=== PATIENT | female | born 1960 | race Caucasian/White ===

== ENCOUNTER → 2019-06-03 | Outpatient (CLI) | payer OTHER | END | disposition home or self-care (01) | LOC: LAB SHORT 10:30 → LAB 10:30 | PROVIDERS: Nurse Practitioner | DX: Z01.419 Encounter for gynecological examination (general) (routine) without abnormal findings (principal) | CPT/HCPCS: G0145 ==

== ENCOUNTER 2021-01-01 11:02 | Observation (INO) | payer OTHER ==
[~2021-01-01] VITALS: Ht 162.6 cm; Wt 90.7 kg
[~2021-01-01 11:02] MED LIST: FLONASE SENSIM5.9 M1
[2021-01-01 11:47] LABS: BASOPHILS ABSOLUTE AUTO 0.04 K/mm3 (0.00-0.23); BASOPHILS PERCENT AUTO 1 % (0-2); EOSINOPHILS ABSOLUTE AUTO 0.26 K/mm3 (0.00-0.68); EOSINOPHILS PERCENT AUTO 4 % (0-6); Hematocrit 42.2 % (33.0-51.0); Hemoglobin 14.4 g/dL (11.5-16.0); IMMATURE GRAN ABSOLUTE AUTO 0.03 K/mm3 (0.00-0.10); IMMATURE GRAN PERCENT AUTO 0 % (0-1); LYMPHOCYTES ABSOLUTE AUTO 1.43 K/mm3 (0.84-5.20); LYMPHOCYTES PERCENT AUTO 20 % (21-46); MONOCYTES ABSOLUTE AUTO 0.54 K/mm3 (0.16-1.47); MONOCYTES PERCENT AUTO 7 % (4-13); Mean Corpuscular HGB Conc 34.1 g/dL (31.5-36.5); Mean Corpuscular Volume 97 fL (80-100); Mean Platelet Volume 10.9 fL (9.1-12.4); NEUTROPHILS ABSOLUTE AUTO 5.04 K/mm3 (1.96-9.15); NEUTROPHILS PERCENT AUTO 69 % (41-73); Platelet Count 186 K/mm3 (150-400); RDW Standard Deviation 46.5 fL (35.1-46.3); Red Blood Cell Count 4.36 M/mm3 (3.80-5.20); White Blood Cell Count 7.34 K/mm3 (4.00-11.30)
[2021-01-01 12:00] LABS: Alanine Aminotransfer (ALT/SGP 41 U/L (12-78); Albumin, Blood 3.9 g/dL (3.4-5.0); Alk Phos 37 U/L (50-136); Anion Gap 6 mmol/L (6-16); Aspartate Aminotrans (AST/SGOT 36 U/L (12-37); Bilirubin, Total 0.8 mg/dL (0.1-1.0); Blood Urea Nitrogen 15 mg/dL (8-24); Bun/Creatinine Ratio 26.2 (12.0-20.0); CO2, Blood 25 mmol/L (21-32); Calcium, Blood 9.3 mg/dL (8.5-10.1); Chloride, Blood 110 mmol/L (98-108); Creatinine, Blood 0.57 mg/dL (0.40-1.00); Globulin, Blood 3.8 g/dL (2.2-4.0); Glomerular Filtration Rate >60 (60-); Glucose, Blood 158 mg/dL (70-99); Sodium, Blood 141 mmol/L (136-145); Total Protein, Blood 7.7 g/dL (6.4-8.2); Troponin I <0.015 ng/mL (0.000-0.040)
[2021-01-01] MEDS ORDERED: Mobic7.5 MG PO (14:17)
[2021-01-01] MEDS ORDERED: ATOR10 PO (14:18)
[2021-01-01] MEDS ORDERED: OMEP20ER PO (14:19)
[2021-01-01] MEDS ORDERED: BUDESONIDE-FO10.2 G2 INH (14:19)
[2021-01-01] MEDS ORDERED: IBU800 M1 PO (14:19)
[2021-01-01] MEDS ORDERED: HYDCHL25 PO (14:20)
[2021-01-01] MEDS ORDERED: ALBU90OI INH (14:29)
[2021-01-01] MEDS ORDERED: PROBIOTIC1 EA13 PO (18:04)
--- NOTE | 2021-01-01 19:15 | NUR ---
ASSUMED CARE REPORT RECEIVED FROM LUL[facility] PI[facility]A. PT LYING IN BED, IN NO ACUTE DISTRESS. NO ACUTE NEEDS ASSESSED AT THIS TIME. PT REQUESTING ICE CHIPS. WILL COMMUNICATE REQUEST TO PHYSICIAN. CALL LIGHT, POSSESSIONS IN REACH, BED IN LOW POSITION. CONTINUE TO MONITOR.
--- NOTE | 2021-01-01 19:30 | NUR ---
SHIFT SUMMARY: PATIENT ADMIT (OBS) FROM ED THIS SHIFT. PT A&O; CALM & COOPERATIVE WITH CARE; INDEPENDENT IN ROOM. NO C/O PAIN/NAUSEA SINCE ARRIVAL ON MEDICAL. 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 PATIENT IS NPO; REHYDRATION CONTINUING. REPORT GIVEN TO ONCOMING RN.
[2021-01-02 04:41] LABS: BASOPHILS ABSOLUTE AUTO 0.03 K/mm3 (0.00-0.23); BASOPHILS PERCENT AUTO 1 % (0-2); EOSINOPHILS ABSOLUTE AUTO 0.24 K/mm3 (0.00-0.68); EOSINOPHILS PERCENT AUTO 4 % (0-6); Hematocrit 38.5 % (33.0-51.0); Hemoglobin 12.9 g/dL (11.5-16.0); IMMATURE GRAN ABSOLUTE AUTO 0.02 K/mm3 (0.00-0.10); IMMATURE GRAN PERCENT AUTO 0 % (0-1); LYMPHOCYTES ABSOLUTE AUTO 1.81 K/mm3 (0.84-5.20); LYMPHOCYTES PERCENT AUTO 32 % (21-46); MONOCYTES ABSOLUTE AUTO 0.58 K/mm3 (0.16-1.47); MONOCYTES PERCENT AUTO 10 % (4-13); Mean Corpuscular HGB 32.7 pg (26.0-34.0); Mean Corpuscular HGB Conc 33.5 g/dL (31.5-36.5); Mean Corpuscular Volume 98 fL (80-100); NEUTROPHILS ABSOLUTE AUTO 2.91 K/mm3 (1.96-9.15); NEUTROPHILS PERCENT AUTO 52 % (41-73); Platelet Count 138 K/mm3 (150-400); RDW Standard Deviation 46.7 fL (35.1-46.3); Red Blood Cell Count 3.94 M/mm3 (3.80-5.20); White Blood Cell Count 5.59 K/mm3 (4.00-11.30)
--- NOTE | 2021-01-02 04:59 | NUR ---
SALAD MAKER SUMMARY PT RESTING COMFORTABLY, NO ACUTE DISTRESS NOTED. VS REVIEWED, WNL. PT REPORTS DIZZINESS IS IMPROVED, DENIES FEELINGS OF SYNCOPE, N/V, CP OR PRESSURE. HR STABLE. PT SLEPT ON AND OFF T/O NIGHT. DENIES PAIN. NO ACUTE NEEDS ASSESSED AT THIS TIME. CALL LIGHT AND POSSESSIONS IN REACH, PT INDEPENDENT IN ROOM. IVF ONGOING. CONTINUE TO MONITOR, REPORT OFF TO DAY RN.
[2021-01-02 05:00] LABS: Alanine Aminotransfer (ALT/SGP 32 U/L (12-78); Albumin, Blood 3.2 g/dL (3.4-5.0); Alk Phos 32 U/L (50-136); Anion Gap 5 mmol/L (6-16); Aspartate Aminotrans (AST/SGOT 14 U/L (12-37); Bilirubin, Total 0.7 mg/dL (0.1-1.0); Blood Urea Nitrogen 11 mg/dL (8-24); Bun/Creatinine Ratio 15.2 (12.0-20.0); CO2, Blood 29 mmol/L (21-32); Calcium, Blood 8.5 mg/dL (8.5-10.1); Chloride, Blood 110 mmol/L (98-108); Creatinine, Blood 0.72 mg/dL (0.40-1.00); Globulin, Blood 3.2 g/dL (2.2-4.0); Glomerular Filtration Rate >60 (60-); Glucose, Blood 93 mg/dL (70-99); Potassium, Blood 3.5 mmol/L (3.5-5.5); Sodium, Blood 144 mmol/L (136-145); Total Protein, Blood 6.4 g/dL (6.4-8.2)
--- NOTE | 2021-01-02 11:53 | NUR ---
PATIENT DISCHARGE: PATIENT DISCHARGED TO HOME THIS SHIFT. MEDICATION RECONCILIATION COMPLETED; NO NEW MEDS TO REPORT. DISCHARGE EDUCATION COMPLETED WITH PATIENT. PATIENT INDEPENDENT; PATIENT REFUSED WHEELCHAIR TO EXIT; PATIENT DEPARTED MEDICAL FLOOR AT 1148. PATIENT DEPARTED [facility] VIA PRIVATE AUTO.
[2021-01-02 13:18] LABS: Stool Occult Bld Immuno 1 Negative (NEGATIVE)
== END 2021-01-02 11:48 | disposition home or self-care (01) ==
LOC: ER 11:02 → SURS 11:03 → MEDS 11:03 → SURS 17:22 → MEDS 17:27
PROVIDERS: Emergency Medicine; ADMIT Internal Medicine
DX: R74.8 Abnormal levels of other serum enzymes (principal); E78.5 Hyperlipidemia, unspecified; K21.9 Gastro-esophageal reflux disease without esophagitis; E66.9 Obesity, unspecified; Z68.34 Body mass index [BMI] 34.0-34.9, adult; J45.909 Unspecified asthma, uncomplicated; R07.89 Other chest pain; R16.0 Hepatomegaly, not elsewhere classified; D69.6 Thrombocytopenia, unspecified; I44.7 Left bundle-branch block, unspecified; Z87.891 Personal history of nicotine dependence
CPT/HCPCS: 36415; 71046; 76705; 80053; 82274; 83690; 83735; 83880; 84443; 84484; 85025; 85379; 93005; 93010; 94640; 94760; 99285-25; A9270; G0378; J7030